=== PATIENT | male | born 1980 | race Caucasian/White ===

== ENCOUNTER 2020-12-07 18:36 | Emergency (ER) | payer OTHER ==
[2020-12-07 18:46] VITALS: BP 112/65; PULSE 88; TEMP 98.2; BMI 28.0
[2020-12-07] MEDS ORDERED: KETOROLAC TROMETHAMINE 30 MG/1 ML VIAL IM ONE (19:58)
[2020-12-07] MEDS ORDERED: KETOROLAC TROMETHAMINE 30 MG/1 ML VIAL ONE (20:02)
== END 2020-12-07 20:36 | disposition home or self-care (01) ==
LOC: JER 18:36
PROC: 3E0233Z Introduction of Anti-inflammatory into Muscle, Percutaneous Approach (ICD-10-PCS; principal; 2020-12-07)
DX: S29.011A Strain of muscle and tendon of front wall of thorax, initial encounter (principal); X50.3XXA Overexertion from repetitive movements, initial encounter; Y93.B9 Activity, other involving muscle strengthening exercises
CPT/HCPCS: 93005; 93010; 99284-25